=== PATIENT | female | born 1960 | race Caucasian/White ===

== ENCOUNTER 2016-04-05 18:41 | Emergency (ER) | payer SELFPAY ==
[~2016-04-05] VITALS: Ht 157.5 cm; Wt 65.8 kg
[~2016-04-05 18:41] MED LIST: DOCU-143 PO; Flexeril; HYDR-3062 PO; LANS30CA43 PO; NAPR550T PO; PARO30TA74 PO
--- OUTSIDE RECORDS SUMMARY | 2016-04-05 18:45 | XMS REPORT | Continuity of Care Document ---
Author Author [facility] Organization [facility] Address Unknown Phone Unavailable Care Team Providers Care Assembler Arranger Name Role Phone [facility] PCP Insurance Providers Payer Name Policy Number Subscriber Name Relationship Self Pay Regla Jimenez Siva 18 Self / Same As Patient Advance Directives Directive Response Recorded Date/Time Advance Directives No 02/06/16 3:38pm Organ Donor Yes 02/06/16 3:38pm Resuscitation Status Full Code 02/06/16 3:38pm Problems Active Problems Medical Problem Onset Date Status Back pain Unknown Acute Lumbar radiculopathy Unknown Acute Medications Current Home Medications Medication Dose Units Route Directions Days/Qty Instructions Start Date Paroxetine Hcl 30 Mg 30 Mg Oral Daily 12/19/15 Lansoprazole 30 Mg 30 Mg Oral 12/19/15 Past Home Medications Medication Directions Ordered Status Naproxen Sodium (Naproxen) 550 Mg Tablet, 550 Mg Oral Twice A Day 12/19/15 Discontinued [Flexeril] , 10 Mg Twice A Day 12/19/15 Discontinued Social History Social History Problem Response Recorded Date/Time Alcohol Use Denies Use 02/06/2016 3:38pm Recreational Drug Use No 02/06/2016 3:38pm Recent Foreign Travel No 02/06/2016 3:45pm Recent Infectious Disease Exposure No 02/06/2016 3:45pm Smoking Status Current Everyday Smoker 02/06/2016 3:38pm Type Used Cigarettes 02/06/2016 3:38pm Recent Hopitalizations No 02/06/2016 3:38pm Query Response Start Date Stop Date Smoking Status Current Everyday Smoker Hospital Discharge Instructions No hospital discharge instructions. Plan of Care Discharge Date 02/06/16 3:50pm Prescriptions See Medication Section Functional Status No functional status results. Allergies, Adverse Reactions, Alerts No known allergies. Immunizations No immunization records. Vital Signs Acute Vital Signs Vital Response Date/Time Pulse Rate (adult) 90 bpm (60 - 90) 02/06/2016 3:42pm O2 Sat by Pulse Oximetry 97 % (88 - 100) 02/06/2016 3:42pm Blood Pressure 114/74 mm Hg 02/06/2016 3:42pm Blood Pressure Mean 87 mm Hg 02/06/2016 3:42pm Pain Numeric Pain Scale 2 02/06/2016 3:42pm Height (Feet) 5 feet 02/06/2016 3:45pm Height (Inches) 2.00 inches 02/06/2016 3:45pm Height (Calculated Centimeters) 157.011561 cm 02/06/2016 3:45pm Weight (Pounds) 143 pounds 02/06/2016 3:45pm Weight (Ounces) 7.0 oz 02/06/2016 3:45pm Weight (Calculated Grams) 38911.16 gm 02/06/2016 3:45pm Weight (Calculated Kilograms) 65.560657 kilograms 02/06/2016 3:45pm Calculated BMI 26.2 02/06/2016 3:45pm Results No known relevant diagnostic tests, laboratory data and/or discharge summary. Procedures No known history of procedures. Encounters Encounter Location Arrival/Admit Date Discharge/Depart Date Attending Provider Registered Clinic [facility] 02/06/16 3:30pm RADHA MARIE DO
--- NOTE | 2016-04-05 20:59 | ED Back Pain ---
General Chief Complaint: Back Problems Stated Complaint: BACK PAIN Nursing Triage Note: pt c/o low back pain radiating down bilat legs intermittently. she was seen 3 months ago et had xrays, denies relief. 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 unrelieved by ibuprofen. requesting pain control et referral to pcp. Nursing Sepsis Screen: No Definite Risk Source of Information: Patient Exam Limitations: No Limitations History of Present Illness Time Seen by Provider: 20:59 Initial Comments 56-year-old female patient presents to the emergency department complains of low back pain radiating down the bilateral buttocks and thighs. Patient reports she has had back pain for at least 3 months and had x-rays in December which were negative for acute findings. Patient was seen by Karina Jacobo twice without improvement in symptoms. Patient denies numbness, tingling, weakness, bowel incontinence, or bladder incontinence. Denies any known injury. Patient reports just starting a new job at [employer]. Location: Lumbar Spine, Paraspinous Muscles Timing/Duration: Getting Worse, Other (chronic pain for approximately 3 months) Pain/Injury Location: Back Radiation: Buttocks, Upper Legs Method of Injury: Unknown Modifying Factors: Worse With Movement Associated Symptoms: muscle spasmsNo fever, No weakness, No numbness in legs/ feet, No tingling in legs/feet, No sensory/motor loss, lower back painNo loss of bladder control, No loss of bowel control Allergies and Home Medications Allergies Coded Allergies: No Known Drug Allergies (Unverified , 02/06/16) Home Medications Cyclobenzaprine HCl 10 Mg Tablet #14 10 MG PO Q8H PRN PRN SPASMS Prescribed by: LESA JONES on 04/05/162155 Docusate Sodium 100 Mg Capsule #60 100 MG PO BID Prescribed by: ADINA HORNE on 02/13/16 1024 Hydrocodone/Acetaminophen 1 Each Tablet 0Days 1 EACH PO [id number] PRN PRN PAIN Prescribed by: ADINA HORNE on 02/13/16 1024 Lansoprazole 30 Mg Capsule.dr 30 MG PO (Reported) Paroxetine HCl 30 Mg Tablet 30 MG PO DAILY (Reported) Prednisone 20 Mg Tab #10 40 MG PO DAILY Prescribed by: LESA JONES on 04/05/162155 Tramadol HCl 50 Mg Tablet #10 50 MG PO Q4H PRN PRN PAIN Prescribed by: LESA JONES on 04/05/162155 Constitutional: no symptoms reported Respiratory: no symptoms reported Cardiovascular: no symptoms reported Gastrointestinal: No abdominal pain, No constipation, No diarrhea, No nausea, No vomiting Genitourinary: no symptoms reported Musculoskeletal: back pain joint pain muscle painNo neck pain Skin: no symptoms reported Psychiatric/Neurological: Denies Numbness, Denies Paresthesia, Denies Tingling , Denies Weakness All Other Systems Reviewed Negative Unless Noted: Yes (Negative excepted noted.) Past Vdkcmyr-Inumeg-Tqqoxm Hx Patient Social History Alcohol Use: Denies Use Recreational Drug Use: No Smoking Status: Current Everyday Smoker Type Used: Cigarettes Recent Foreign Travel: No Contact w/Someone Who Travel: No Recent Infectious Disease Expo: No Recent Hopitalizations: No Seasonal Allergies Seasonal Allergies: No Surgeries HX Surgeries: Yes (PILONDIAL CYST?, BILAT CTR, ) Surgeries: Tubal Ligation Respiratory Hx Respiratory Disorders: No Cardiovascular Hx Cardiac Disorders: No Neurological Hx Neurological Disorders: No Reproductive System Female Reproductive Disorders: Denies Genitourinary Hx Genitourinary Disorders: No Gastrointestinal Hx Gastrointestinal Disorders: No Musculoskeletal Hx Musculoskeletal Disorders: Yes (SCIATIC PAIN) Musculoskeletal Disorders: Arthritis, Chronic Back Pain Endocrine Hx Endocrine Disorders: No HEENT HX ENT Disorders: No Cancer Hx Cancer: No Psychosocial Hx Psychiatric Problems: No Integumentary HX Skin/Integumentary Disorder: No (LIPOMA R UPPER BACK) Blood Transfusions Hx Blood Disorders: No Reviewed Nursing Assessment Reviewed/Agree w Nursing PMH: Yes Family Medical History Significant Family History: No Pertinent Family Hx Physical Exam Vital Signs Vital Sign - Last 12Hours 04/05/16 04/05/16 19:25 22:04 Temp 98.2 Pulse 76 Resp 16 B/P 102/72 Pulse Ox 100 O2 Delivery Room Air Capillary Refill : Less Than 3 Seconds General Appearance: No Apparent Distress WD/WN Cardiovascular: Regular Rate, Rhythm No Edema No Murmur Normal Peripheral Pulses Respiratory: Lungs Clear Normal Breath Sounds No Respiratory Distress Peripheral Pulses: 2+ Radial Pulses (R), 2+ Radial Pulses (L) Gastrointestinal: Normal Bowel Sounds Non Tender SoftNo Distended Back: No Decreased Range of Motion (patient moves without difficulty.), Muscle Spasm Vertebral Tenderness (lower lumbar spine) Extremity: Normal Capillary Refill Normal Inspection Normal Range of Motion No Calf Tenderness No Pedal Edema Other (mild tenderness over the bilateral buttocks and proximal posterior thighs.) Neurologic/Psychiatric: Alert Oriented x3 No Motor/Sensory Deficits Normal Mood/Affect Skin: Normal Color Warm/Dry Progress/Results/Core Measures Results/Orders My Orders Orders-LESA JONES Lumbar Spine - 2-3 Views (04/05/16 21:14) Hydrocodone/Apap 5/325 Tablet (Lortab 5 (04/05/16 21:14) Orphenadrine Injection (Norflex Injectio (04/05/16 21:14) Vital Signs/I&O Vital Sign - Last 12Hours 04/05/16 04/05/16 19:25 22:04 Temp 98.2 Pulse 76 68 Resp 16 14 B/P 102/72 Pulse Ox 100 O2 Delivery Room Air Blood Pressure Mean: 82 Diagnostic Imaging Diagonstic Imaging: Xray Plain Films/CT/US/NM/MRI: other (lumbar spine) Comments FINDINGS: Frontal and lateral views of the lumbar spine were obtained. Alignment and vertebral heights are maintained. There is no fracture or destructive process. Mild multilevel degenerative disease is noted in the lumbar spine. Limited views of the abdomen demonstrate nonobstructive bowel gas pattern. IMPRESSION: 1. No acute fracture or dislocation of the lumbar spine. Dictated on workstation # [id number] Reviewed: Reviewed by Me (radiology report reviewed by me.) Departure Communication Progress Notes Diagnostic findings discussed with the patient. Patient reports improvement in symptoms with medications. Plan for discharge to home. Patient ambulated from the emergency department without difficulty. Impression Impression: Primary Impression: Lumbar radiculopathy Disposition: 01 HOME, SELF-CARE Condition: Improved Departure-Patient Inst. Decision time for Depature: 21:52 Referrals: [facility] (PCP/Family) Primary Care Physician Patient Instructions: Radiculopathy (DC) Add. Discharge Instructions: All discharge instructions reviewed with patient and/or family. Voiced understanding. medications as instructed. Tylenol Extra Strength over-the- counter as directed for pain. Ibuprofen 800 mg by mouth every 8 hours as needed for pain. Ice packs or heating pads as needed for pain. No heavy lifting for 3-5 days, increase activity as tolerated. Follow-up with the family practitioner of choice as an outpatient for recheck and possible need of MRI of the lumbar spine. Call tomorrow morning for appointment time. Return to the emergency department for worsened pain, numbness, weakness, bowel incontinence, bladder incontinence, abdominal pain, or any other concerns. Scripts Tramadol HCl 50 Mg [id number] Mg PO Q4H PRN PAIN #10 TAB Ref 0 Prov:LESA JONES 04/05/16 Cyclobenzaprine HCl 10 Mg Auzrqm12 Mg PO Q8H PRN SPASMS #14 TAB Ref 0 Prov:LESA JONES 04/05/16 Prednisone 20 Mg Tab40 Mg PO DAILY #10 TAB Ref 0 Prov:LESA JONES 04/05/16 LESA JONES Apr 05, 2016 20:59
[2016-04-05] MEDS ORDERED: ORPHENADRINE 60 MG/2 ML (NORFLEX) AMP IM STA (21:14)
[2016-04-05] MEDS ORDERED: HYDROcodone/APAP 5 MG/325 MG (LORTAB) TAB PO STA (21:14)
--- NOTE | 2016-04-05 21:33 | Diagnostic Imaging Report ---
INDICATION: Fall. Back pain. COMPARISON: 12/19/2015 FINDINGS: Frontal and lateral views of the lumbar spine were obtained. Alignment and vertebral heights are maintained. There is no fracture or destructive process. Mild multilevel degenerative disease is noted in the lumbar spine. Limited views of the abdomen demonstrate nonobstructive bowel gas pattern. IMPRESSION: 1. No acute fracture or dislocation of the lumbar spine. Dictated by: Dictated on workstation # [id number]
[2016-04-05] MEDS ORDERED: CYCL10TA9 PO (21:56)
[2016-04-05] MEDS ORDERED: TRAM50TA2 PO (21:56)
[2016-04-05] MEDS ORDERED: PRD20T PO (21:56)
[2016-04-05 22:04] VITALS: BP 110/68
== END 2016-04-05 22:04 | disposition home or self-care (01) ==
LOC: EDUNIT# 18:41 → ER 18:42
DX: M54.16 Radiculopathy, lumbar region (principal); F17.210 Nicotine dependence, cigarettes, uncomplicated
CPT/HCPCS: 72100; 96372; 99281

== ENCOUNTER 2016-04-25 21:31 | Emergency (ER) | payer SELFPAY ==
[~2016-04-25] VITALS: Ht 157.5 cm; Wt 66.0 kg
[~2016-04-25 21:31] MED LIST changes: +CYCL10TA9 PO; +PRD20T PO; +TRAM50TA2 PO
--- OUTSIDE RECORDS SUMMARY | 2016-04-25 21:36 | XMS REPORT | Continuity of Care Document ---
Author Author [facility] Organization [facility] Address Unknown Phone Unavailable Care Team Providers Care Journeyman Millwright Name Role Phone [facility] PCP Insurance Providers Payer Name Policy Number Subscriber Name Relationship Unknown [id number] Regla Flores Siva 18 Self / Same As Patient Advance Directives Directive Response Recorded Date/Time Advance Directives No 04/05/16 8:27pm Organ Donor Yes 04/05/16 8:27pm Resuscitation Status Full Code 04/05/16 8:27pm Chief Complaint and Reason for Visit Chief Complaint Back Problems Reason for Visit Lumbar radiculopathy Problems Active Problems Medical Problem Onset Date Status Back pain Unknown Acute Lumbar radiculopathy Unknown Acute Medications Current Home Medications Medication Dose Units Route Directions Days/Qty Instructions Start Date Paroxetine Hcl 30 Mg 30 Mg Oral Daily 12/19/15 Lansoprazole 30 Mg 30 Mg Oral 12/19/15 Docusate Sodium 100 Mg 100 Mg Oral Twice A Day 60 02/13/16 Hydrocodone/Acetaminophen 1 Each 1 Each Oral [id number] as needed for Pain 0 Days 02/13/16 Prednisone 20 Mg 40 Mg Oral Daily 10 04/05/16 Cyclobenzaprine Hcl 10 Mg 10 Mg Oral Every 8HRS as needed for Spasms 14 04/05/16 Tramadol Hcl 50 Mg 50 Mg Oral Every 4HRS as needed for Pain 10 Past Home Medications Medication Directions Ordered Status Naproxen Sodium (Naproxen) 550 Mg Tablet, 550 Mg Oral Twice A Day 12/19/15 Discontinued [Flexeril] , 10 Mg Twice A Day 12/19/15 Discontinued Social History Social History Problem Response Recorded Date/Time Alcohol Use Denies Use 04/05/2016 8:27pm Recreational Drug Use No 04/05/2016 8:27pm Recent Foreign Travel No 04/05/2016 7:25pm Recent Infectious Disease Exposure No 04/05/2016 7:25pm Smoking Status Current Everyday Smoker 04/05/2016 8:27pm Type Used Cigarettes 04/05/2016 8:27pm Recent Hopitalizations No 04/05/2016 8:27pm Query Response Start Date Stop Date Smoking Status Current Everyday Smoker Hospital Discharge Instructions No hospital discharge instructions. Plan of Care Discharge Date 04/05/16 10:04pm Disposition 01 HOME, SELF-CARE Condition at Discharge Improved Instructions/Education Provided Radiculopathy (DC) Forms Provided Local Medical Staff Listing Prescriptions See Medication Section Referrals [facility] - Primary Care Physician Additional Instructions/Education All discharge instructions reviewed with patient and/or family. Voiced understanding. medications as instructed. Tylenol Extra Strength [id number] as directed for pain. Ibuprofen 800 mg by mouth every 8 hours as needed for pain. Ice packs or heating pads as needed for pain. No heavy lifting for 3-5 days, increase activity as tolerated. Follow-up with the family practitioner of choice as an outpatient for recheck and possible need of MRI of the lumbar spine. Call tomorrow morning for appointment time. Return to the emergency department for worsened pain, numbness, weakness, bowel incontinence, bladder incontinence, abdominal pain, or any other concerns. Functional Status No functional status results. Allergies, Adverse Reactions, Alerts No known allergies. Immunizations No immunization records. Vital Signs Acute Vital Signs Vital Response Date/Time Temperature (Fahrenheit) 98.2 degrees F (97.6 - 99.5) 04/05/2016 7:25pm Temperature (Calculated Celsius) 36.66482 degrees C (36.4 - 37.5) 04/05/2016 7:25pm Temperature Source Temporal 04/05/2016 7:25pm Pulse Rate (adult) 76 bpm (60 - 90) 04/05/2016 7:25pm Respiratory Rate 16 bpm (12 - 24) 04/05/2016 7:25pm Blood Pressure 102/72 mm Hg 04/05/2016 7:25pm Blood Pressure Mean 82 mm Hg 04/05/2016 7:25pm Pain Numeric Pain Scale 5-Moderate Pain 04/05/2016 9:25pm Height (Feet) 5 feet 04/05/2016 7:25pm Height (Inches) 2 inches 04/05/2016 7:25pm Height (Calculated Centimeters) 157.529209 cm 04/05/2016 7:25pm Weight (Pounds) 145 pounds 04/05/2016 7:25pm Weight (Calculated Kilograms) 65.932847 kilograms 04/05/2016 7:25pm Capillary Refill Capillary Refill Less Than 3 Seconds 04/05/2016 7:25pm Height 5 ft 2 in Weight 145 lb Body Mass Index 26.5 kg/m^2 Results No known relevant diagnostic tests, laboratory data and/or discharge summary. Procedures No known history of procedures. Encounters Encounter Location Arrival/Admit Date Discharge/Depart Date Attending Provider Departed Emergency Room [facility] 04/05/16 6:42pm 04/05 10:04pm LESA JONES Recent Diagnosis
--- NOTE | 2016-04-25 21:43 | ED Back Pain ---
General Chief Complaint: Back Problems Stated Complaint: BACK PAIN Source of Information: Patient Exam Limitations: No Limitations History of Present Illness Time Seen by Provider: 21:41 Initial Comments To ER with low back pain for the past 24-48 hours. No fevers or chills. No injury. No radiation of the pain down the legs. No loss of bowel or bladder control and no saddle anesthesia. She states that she was diagnosed here with degenerative disc disease and is scheduled to see a spine surgeon in the next week. She was seen here in March and given prednisone, muscle relaxer, ultram. Location: Lumbar Spine Timing/Duration: 2-3 Days Severity: Moderate Allergies and Home Medications Allergies Coded Allergies: No Known Drug Allergies (Unverified , 02/06/16) Home Medications Cyclobenzaprine HCl 5 Mg Tablet #21 5 MG PO TID PRN PRN PAIN Prescribed by: ALEXIS BERNSTEIN on 04/25/162153 Lansoprazole 30 Mg Capsule.dr 30 MG PO (Reported) Naproxen 500 Mg Tablet.dr #14 500 MG PO BID Prescribed by: ALEXIS BERNSTEIN on 04/25/162153 Paroxetine HCl 30 Mg Tablet 30 MG PO DAILY (Reported) Constitutional: see HPI EENTM: see HPI Respiratory: no symptoms reported Cardiovascular: no symptoms reported Genitourinary: no symptoms reported Musculoskeletal: see HPI back pain Skin: no symptoms reported Psychiatric/Neurological: No Symptoms Reported Past Cehnlls-Pwylqj-Iddnmz Hx Patient Social History Alcohol Use: Denies Use Recreational Drug Use: No Smoking Status: Current Everyday Smoker Type Used: Cigarettes, Electronic/Vapor 2nd Hand Smoke Exposure: Yes Recent Foreign Travel: No Contact w/Someone Who Travel: No Recent Hopitalizations: No Immunizations Up To Date Tetanus Booster (TDap): Less than 5yrs PED Vaccines UTD: Yes Seasonal Allergies Seasonal Allergies: No Surgeries HX Surgeries: Yes (PILONDIAL CYST?, BILAT CTR, lipoma) Surgeries: Tubal Ligation Respiratory Hx Respiratory Disorders: No Cardiovascular Hx Cardiac Disorders: No Neurological Hx Neurological Disorders: No Reproductive System Female Reproductive Disorders: Denies Genitourinary Hx Genitourinary Disorders: No Gastrointestinal Hx Gastrointestinal Disorders: No Musculoskeletal Hx Musculoskeletal Disorders: Yes (SCIATIC PAIN) Musculoskeletal Disorders: Degenerate Disk Disease, Arthritis, Chronic Back Pain Endocrine Hx Endocrine Disorders: No HEENT HX ENT Disorders: No Cancer Hx Cancer: No Psychosocial Hx Psychiatric Problems: No Integumentary HX Skin/Integumentary Disorder: No (LIPOMA R UPPER BACK) Blood Transfusions Hx Blood Disorders: No Family Medical History Significant Family History: No Pertinent Family Hx Physical Exam Vital Signs Vital Sign - Last 12Hours 04/25/16 21:39 Temp 98.7 Pulse 80 Resp 18 B/P 161/74 Pulse Ox 96 O2 Delivery Room Air Capillary Refill : General Appearance: No Apparent Distress WD/WN HEENT: PERRL/EOMI TMs Normal Cardiovascular: Regular Rate, Rhythm Normal Peripheral Pulses Respiratory: Normal Breath Sounds No Accessory Muscle Use No Respiratory Distress Gastrointestinal: Non Tender Soft Back: Normal Inspection Extremity: Normal Capillary Refill Normal Inspection Neurologic/Psychiatric: Alert Oriented x3 Skin: Normal Color Warm/Dry Progress/Results/Core Measures Results/Orders Lab Results Laboratory Tests Test 04/25/16 21:44 Range/Units Ur Tricyclic Antidepressants Screen NEGATIVE NEGATIVE Urine Amphetamines Screen POSITIVE H NEGATIVE Urine Barbiturates Screen NEGATIVE NEGATIVE Urine Benzodiazepines Screen NEGATIVE NEGATIVE Urine Cannabinoids Screen NEGATIVE NEGATIVE Urine Cocaine Screen NEGATIVE NEGATIVE Urine Methadone Screen NEGATIVE NEGATIVE Urine Methamphetamines Screen POSITIVE H NEGATIVE Urine Opiates Screen NEGATIVE NEGATIVE Urine Oxycodone Screen NEGATIVE NEGATIVE Urine Phencyclidine Screen NEGATIVE NEGATIVE Urine Propoxyphene Screen NEGATIVE NEGATIVE My Orders Orders-ALEXIS BERNSTEIN APRN Drug Screen Stat (Urine) (04/25/16 21:38) Ketorolac Injection (Toradol Injection) (04/25/16 21:45) Orphenadrine Injection (Norflex Injectio (04/25/16 21:45) Medications Given in ED Current Medications Medications Dose Ordered Sig/Nata Route Start Time Stop Time Status Last Admin Dose Admin Ketorolac Tromethamine 60 mg ONCE ONCE IM 04/25/16 21:45 04/25/16 21:46 DC 04/25/16 21:50 60 MG Orphenadrine Citrate 60 mg ONCE ONCE IM 04/25/16 21:45 04/25/16 21:46 DC 04/25/16 21:48 60 MG Vital Signs/I&O Vital Sign - Last 12Hours 04/25/16 04/25/16 04/25/16 21:39 21:48 21:50 Temp 98.7 98.7 98.7 Pulse 80 Resp 18 B/P 161/74 Pulse Ox 96 O2 Delivery Room Air Departure Impression Impression: Primary Impression: Back pain Qualified Code: M54.5 - Low back pain Additional Impression: Methamphetamine abuse Disposition: 01 HOME, SELF-CARE Condition: Stable Departure-Patient Inst. Decision time for Depature: 21:43 Referrals: [facility] (PCP/Family) Primary Care Physician Patient Instructions: Low Back Pain (DC) Add. Discharge Instructions: 1. Medication as directed 2. Return to ER for any concerns 3. Follow-up with your doctor next week All discharge instructions reviewed with patient and/or family. Voiced understanding. Scripts Naproxen (EC-Naprosyn)500 Mg Tablet.dr500 Mg PO BID #14 TAB Prov:ALEXIS BERNSTEIN [employer]ING [employer]OX [employer] 04/25/16 Cyclobenzaprine HCl 5 Mg Tablet5 Mg PO TID PRN PAIN #21 TAB Prov:ALEXIS BERNSTEIN APRN 04/25/16 ALEXIS BERNSTEIN APRN Apr 25, 2016 21:43
[2016-04-25] MEDS ORDERED: KETOROLAC 60 MG/2 ML VIAL IM ONE (21:45)
[2016-04-25] MEDS ORDERED: ORPHENADRINE 60 MG/2 ML (NORFLEX) AMP IM ONE (21:45)
[2016-04-25 21:53] LABS: BILIRUBIN,URINE NEGATIVE (NEGATIVE); KETONES,URINE NEGATIVE (NEGATIVE); LEUKOCYTE ESTERASE ,URINE NEGATIVE (NEGATIVE); NITRITE,URINE NEGATIVE (NEGATIVE); PH,URINE 5 (5-9); PROTEIN,URINE NEGATIVE (NEGATIVE); UROBILINOGEN,URINE NORMAL (NORMAL)
[2016-04-25] MEDS ORDERED: CYCL5TAB PO (21:54)
[2016-04-25] MEDS ORDERED: NAPR500T2 PO (21:54)
[2016-04-25 22:20] VITALS: BP 161/74
== END 2016-04-25 22:20 | disposition home or self-care (01) ==
LOC: EDUNIT# 21:31 → ER 21:32
DX: M54.5 Low back pain (principal); F15.10 Other stimulant abuse, uncomplicated; F17.210 Nicotine dependence, cigarettes, uncomplicated
CPT/HCPCS: 80306; 81000; 96372; 99282

== ENCOUNTER 2016-05-10 12:42 | Emergency (ER) | payer SELFPAY ==
[~2016-05-10] VITALS: Ht 157.5 cm; Wt 64.9 kg
[~2016-05-10 12:42] MED LIST changes: +CYCL5TAB PO; +NAPR500T2 PO
[2016-05-10] MEDS ORDERED: fentaNYL INJECTION 100 MCG/2 ML AMP IVP ONE (13:00)
[2016-05-10] MEDS ORDERED: PREVACID (13:06)
[2016-05-10] MEDS ORDERED: MOBIC (13:06)
--- NOTE | 2016-05-10 13:06 | ED Back Pain ---
General Chief Complaint: Back Problems Stated Complaint: BACK PAIN Source of Information: Patient Exam Limitations: No Limitations History of Present Illness Time Seen by Provider: 13:03 Initial Comments To ER with low back pain that radiates down both legs but on the right side worse than the left. This began about 4 months ago. She was seen here a few weeks ago and given a prescription for anti-inflammatories and prednisone which she states did help significantly. However, she is out of prednisone pain in his back. She denies any loss of bowel or bladder control. Denies any fevers. Location: Lumbar Spine, Paraspinous Muscles Timing/Duration: 1-2 Days Severity: Moderate Pain/Injury Location: Back Associated Symptoms: No fever, lower back pain Allergies and Home Medications Allergies Coded Allergies: No Known Drug Allergies (Unverified , 02/06/16) Home Medications Paroxetine HCl 30 Mg Tablet, 30 MG PO DAILY, (Reported) [Mobic] , (Reported) [Prevacid] , (Reported) Constitutional: see HPI EENTM: see HPI Respiratory: no symptoms reported Cardiovascular: no symptoms reported Genitourinary: no symptoms reported Musculoskeletal: see HPI, back pain Skin: no symptoms reported Psychiatric/Neurological: No Symptoms Reported Past Dtkxmvo-Umhbhy-Ijqkfs Hx Patient Social History Type Used: Cigarettes, Electronic/Vapor 2nd Hand Smoke Exposure: Yes Recent Foreign Travel: No Contact w/Someone Who Travel: No Recent Hopitalizations: No Immunizations Up To Date Tetanus Booster (TDap): Less than 5yrs PED Vaccines UTD: Yes Seasonal Allergies Seasonal Allergies: No Surgeries HX Surgeries: Yes (PILONDIAL CYST?, BILAT CTR, lipoma) Surgeries: Tubal Ligation Respiratory Hx Respiratory Disorders: No Cardiovascular Hx Cardiac Disorders: No Neurological Hx Neurological Disorders: No Reproductive System Female Reproductive Disorders: Denies Genitourinary Hx Genitourinary Disorders: No Gastrointestinal Hx Gastrointestinal Disorders: No Musculoskeletal Hx Musculoskeletal Disorders: Yes (SCIATIC PAIN) Musculoskeletal Disorders: Degenerate Disk Disease, Arthritis, Chronic Back Pain Endocrine Hx Endocrine Disorders: No HEENT HX ENT Disorders: No Cancer Hx Cancer: No Psychosocial Hx Psychiatric Problems: No Integumentary HX Skin/Integumentary Disorder: No (LIPOMA R UPPER BACK) Blood Transfusions Hx Blood Disorders: No Family Medical History Significant Family History: No Pertinent Family Hx Physical Exam Vital Signs Vital Sign - Last 12Hours 05/10/16 12:50 Temp 98.0 Pulse 93 Resp 18 B/P (MAP) 159/95 Pulse Ox 97 Capillary Refill : General Appearance: No Apparent Distress, WD/WN, Other (moves nearly constantly , speaks in a high rate of speed and appears to be either manic or under the influence of a stimulant) HEENT: PERRL/EOMI, TMs Normal Neck: Full Range of Motion, Normal Inspection Respiratory: No Accessory Muscle Use, No Respiratory Distress Gastrointestinal: Non Tender, Soft Back: Normal Inspection, Muscle Spasm Extremity: Normal Capillary Refill, Normal Inspection Neurologic/Psychiatric: Alert, Oriented x3, No Motor/Sensory Deficits Skin: Normal Color, Warm/Dry Progress/Results/Core Measures Results/Orders Lab Results Laboratory Tests Test 05/10/16 13:10 Range/Units Urine Color YELLOW Urine Clarity CLEAR Urine pH 6 5-9 Urine Specific [place] 1.010 L 1.016-1.022 Urine Protein NEGATIVE NEGATIVE Urine Glucose (UA) NEGATIVE NEGATIVE Urine Ketones NEGATIVE NEGATIVE Urine Nitrite NEGATIVE NEGATIVE Urine Bilirubin NEGATIVE NEGATIVE Urine Urobilinogen NORMAL NORMAL MG/DL Urine Leukocyte Esterase NEGATIVE NEGATIVE Urine RBC (Auto) NEGATIVE NEGATIVE Urine RBC NONE /HPF Urine WBC NONE /HPF Urine Squamous Epithelial Cells 5-10 /HPF Urine Crystals NONE /LPF Urine Bacteria NEGATIVE /HPF Urine Casts NONE /LPF Urine Mucus NEGATIVE /LPF Urine Culture Indicated NO Urine Opiates Screen NEGATIVE NEGATIVE Urine Oxycodone Screen NEGATIVE NEGATIVE Urine Methadone Screen NEGATIVE NEGATIVE Urine Propoxyphene Screen NEGATIVE NEGATIVE Urine Barbiturates Screen NEGATIVE NEGATIVE Ur Tricyclic Antidepressants Screen NEGATIVE NEGATIVE Urine Phencyclidine Screen NEGATIVE NEGATIVE Urine Amphetamines Screen POSITIVE H NEGATIVE Urine Methamphetamines Screen POSITIVE H NEGATIVE Urine Benzodiazepines Screen NEGATIVE NEGATIVE Urine Cocaine Screen NEGATIVE NEGATIVE Urine Cannabinoids Screen NEGATIVE NEGATIVE My Orders Orders - ALEXIS BERNSTEIN APRN Fentanyl Injection (Sublimaze Injection (05/10/16 13:00) Ct Lumbar Spine Wo (05/10/16 13:03) Drug Screen Stat (Urine) (05/10/16 13:03) Ua Culture If Indicated (05/10/16 13:03) Ketorolac Injection (Toradol Injection) (05/10/16 13:30) Diphenhydramine Injection (Benadryl Inje (05/10/16 13:30) Medications Given in ED Current Medications Medications Dose Ordered Sig/Nata Route Start Time Stop Time Status Last Admin Dose Admin Diphenhydramine HCl 25 mg ONCE ONCE IM 05/10/16 13:30 05/10/16 13:31 DC 05/10/16 13:31 25 MG Ketorolac Tromethamine 60 mg ONCE ONCE IM 05/10/16 13:30 05/10/16 13:31 DC 05/10/16 13:31 60 MG Vital Signs/I&O Vital Sign - Last 12Hours 05/10/16 12:50 Temp 98.0 Pulse 93 Resp 18 B/P (MAP) 159/95 Pulse Ox 97 Diagnostic Imaging Diagonstic Imaging: CT Comments NAME: REGLA JIMENEZ [facility] REC#: [id number] PT STATUS: REG ER : 1960 PHYSICIAN: ALEXIS BERNSTEIN APRN ADMIT DATE: 05/10/16/ER Draft Date of Exam:05/10/16 CT LUMBAR SPINE WO PROCEDURE: CT lumbar spine without contrast. TECHNIQUE: Multiple contiguous axial images were obtained through the lumbar spine without the use of intravenous contrast. Sagittal and coronal reformations were then performed. INDICATION: Chronic back pain radiating into right leg. FINDINGS: Sagittal and coronal reformatted images show good alignment of the vertebral bodies. Body heights and disc spaces are well maintained. No compression fractures. Mild hypertrophic lipping of the endplates noted anteriorly. Facets show good alignment without evidence of pars defect. There is no evidence of central canal stenosis. Degenerative facet disease noted at L5-S1 with hypertrophic bony changes causing mild foraminal encroachment in the right neuroforamen. The surrounding soft tissues appear normal. IMPRESSION: 1. Mild degenerative disc disease. 2. Degenerative facet changes at L5-S1 with hypertrophic bony changes causing [id number] foraminal encroachment in the right neuroforamen. Dictated on workstation # [id number] Dict: 05/10/16 1352 Trans: 05/10/16 1356 [id number] Interpreted by: ROBERT MASTERS MD Electronically signed by: Departure Impression Impression: Primary Impression: Lumbar radiculopathy Additional Impression: Methamphetamine abuse Disposition: 01 HOME, SELF-CARE Condition: Stable Departure-Patient Inst. Decision time for Depature: 13:32 Referrals: [facility] (PCP/Family) Primary Care Physician Patient Instructions: MANAGING YOUR CHRONIC PAIN Add. Discharge Instructions: 1. You should stop using methamphetamines. If you desire treatment for this, you may call the addiction treatment Center in [place], 2. Follow-up with your regular doctor. Tylenol and Motrin for pain 3. Return to ER for any loss of bowel or bladder control, high fevers, or numbness of your genitals All discharge instructions reviewed with patient and/or family. Voiced understanding. Scripts Cyclobenzaprine HCl (Cyclobenzaprine HCl) 5 Mg Tablet 5 MG PO TID for 7 Days, TAB Prov: ALEXIS BERNSTEIN APRN 05/10/16 ALEXIS BERNSTEIN APRN May 10, 2016 13:06
[2016-05-10 13:17] LABS: BILIRUBIN,URINE NEGATIVE (NEGATIVE); KETONES,URINE NEGATIVE (NEGATIVE); LEUKOCYTE ESTERASE ,URINE NEGATIVE (NEGATIVE); NITRITE,URINE NEGATIVE (NEGATIVE); PH,URINE 6 (5-9); PROTEIN,URINE NEGATIVE (NEGATIVE); UROBILINOGEN,URINE NORMAL (NORMAL)
[2016-05-10] MEDS ORDERED: KETOROLAC 60 MG/2 ML VIAL IM ONE (13:30)
[2016-05-10] MEDS ORDERED: diphenhydrAMINE 50 MG/ML INJ (BENADRYL) IM ONE (13:30)
--- NOTE | 2016-05-10 13:57 | Diagnostic Imaging Report ---
PROCEDURE: CT lumbar spine without contrast. TECHNIQUE: Multiple contiguous axial images were obtained through the lumbar spine without the use of intravenous contrast. Sagittal and coronal reformations were then performed. INDICATION: Chronic back pain radiating into right leg. FINDINGS: Sagittal and coronal reformatted images show good alignment of the vertebral bodies. Body heights and disc spaces are well maintained. No compression fractures. Mild hypertrophic lipping of the endplates noted anteriorly. Facets show good alignment without evidence of pars defect. There is no evidence of central canal stenosis. Degenerative facet disease noted at L5-S1 with hypertrophic bony changes causing mild foraminal encroachment in the right neuroforamen. The surrounding soft tissues appear normal. IMPRESSION: 1. Mild degenerative disc disease. 2. Degenerative facet changes at L5-S1 with hypertrophic bony changes causing [id number] foraminal encroachment in the right neuroforamen. Dictated by: Dictated on workstation # [id number]
[2016-05-10] MEDS ORDERED: CYCL5TAB PO (14:00)
[2016-05-10 14:04] VITALS: BP 144/91
--- OUTSIDE RECORDS SUMMARY | 2016-05-26 13:25 | XMS REPORT ---
Author Author BEREKET AMEZCUA [facility] eClinical[employer] Address Unknown Phone Unavailable Care Team Providers Care Moth Proofer Name Role Phone BEREKET AMEZCUA CP Unavailable Allergies No Known Allergies Problems Problem Type Condition Code Onset Dates Condition Status Problem PTSD (post-traumatic stress disorder) F43.10 Active Problem Anxiety F41.9 Active Problem Severe episode of recurrent major depressive disorder, without psychotic features F33.2 Active Assessment Anxiety F41.9 Active Assessment Severe episode of recurrent major depressive disorder, without psychotic features F33.2 Active Assessment PTSD (post-traumatic stress disorder) F43.10 Active Medications No Known Medications Procedures Procedure Coding System Code Date Psychotherapy, patient &/family, 30 minutes, established patient CPT-4 17840 Dec 23, 2015 Results No Known Results Summary Purpose eClinicalWorks Submission
--- OUTSIDE RECORDS SUMMARY | 2016-05-26 13:26 | XMS REPORT ---
Author Author BEREKET AMEZCUA [facility] e[employer] Address Unknown Phone Unavailable Care Team Providers Care Organizational Psychologist Name Role Phone BEREKET AMEZCUA Unavailable Allergies No Known Allergies Problems Problem Type Condition Code Onset Dates Condition Status Assessment Bipolar disorder, current episode manic without psychotic features , severe F31.13 Active Medications No Known Medications Procedures Procedure Coding System Code Date Psych diagnostic evaluation, new patient CPT-4 81944 Sep 16, 2015 Results No Known Results Summary Purpose eClinicalWorks Submission
--- OUTSIDE RECORDS SUMMARY | 2016-05-26 13:26 | XMS REPORT ---
Author Author DANIEL OBANDO [facility] Address [address] [place] [address] Care Team Providers Care Esthetician/Owner Name Role Phone DANIEL OBANDO Unavailable PROBLEMS Type Condition ICD9-CM Code QNB50-CM Code Onset Dates Condition Status SNOMED Code Problem Severe episode of recurrent major depressive disorder, without psychotic features F33.2 Active 36983297 Problem PTSD (post-traumatic stress disorder) F43.10 Active 91568178 Problem Anxiety F41.9 Active 58105674 Assessment Lipoma of right upper extremity D17.21 Dec, Active 497544425 ALLERGIES Substance Reaction Event Type Date Status N.K.D.A. Unknown Non Drug Allergy Dec, Unknown SOCIAL HISTORY No smoking Hx information available PLAN OF CARE VITAL SIGNS Height 62 in 2016-01-08 Weight 136 lbs 2016-01-08 Heart Rate 92 bpm 2016-01-08 Respiratory Rate 20 2016-01-08 BMI 24.87 kg/m2 2016-01-08 Blood pressure systolic 90 mmHg 2016-01-08 Blood pressure diastolic 60 mmHg 2016-01-08 MEDICATIONS Medication Instructions Dosage Frequency Start Date End Date Duration Status Prevacid 15 MG Orally Once a day 1 capsule 24h Active Paxil 40 mg Orally Once a day 1 tablet in the morning 24h Active RESULTS No Results PROCEDURES Procedure Date Ordered Related Diagnosis Body Site Office Visit, Est Pt., Level 3 Jan 08, 2016 IMMUNIZATIONS No Known Immunizations
--- OUTSIDE RECORDS SUMMARY | 2016-05-26 13:26 | XMS REPORT ---
Author Author FRANK ADAN Organization [employer] Address Unknown Phone Unavailable Care Team Providers Care Claims Auditor Name Role Phone FRANK ADAN CP Unavailable Allergies No Known Allergies Problems No Known Problems Medications No Known Medications Results No Known Results Summary Purpose eClinicalWorks Submission
--- OUTSIDE RECORDS SUMMARY | 2016-05-26 13:26 | XMS REPORT ---
Author Author BEREKET AMEZCUA [facility] e[employer] Address Unknown Phone Unavailable Care Team Providers Care Pump House Operator Name Role Phone BEREKET AMEZCUA CP Unavailable [...] patient &/family, 30 minutes, established patient CPT-4 01527 Jan 08, 2016 Results No Known Results Summary Purpose eClinicalWorks Submission
== END 2016-05-10 14:04 | disposition home or self-care (01) ==
LOC: EDUNIT# 12:42 → ER 12:43
DX: M47.26 Other spondylosis with radiculopathy, lumbar region (principal); F15.10 Other stimulant abuse, uncomplicated
CPT/HCPCS: 72131; 80306; 81000; 96372; 99282

== ENCOUNTER 2016-06-09 11:13 | Outpatient (RCR) | payer SELFPAY ==
[~2016-06-09 11:13] MED LIST changes: +MOBIC; +PREVACID
== END 2016-06-24 15:29 | disposition home or self-care (01) ==
PROVIDERS: ATTEND Nurse Practitioner Community Health
DX: M54.41 Lumbago with sciatica, right side (principal)

== ENCOUNTER 2016-08-20 17:01 | Emergency (ER) | payer SELFPAY ==
[~2016-08-20] VITALS: Ht 157.5 cm; Wt 61.2 kg
[2016-08-20] MEDS ORDERED: PRD20T PO (19:06)
--- NOTE | 2016-08-20 19:06 | ED Back Pain ---
General Chief Complaint: Back Problems Stated Complaint: LT LEG PAIN Source of Information: Patient History of Present Illness Time Seen by Provider: 18:55 Initial Comments patient presents with 2 weeks progressively worsening pain initiates at the base of her left hip and radiates electrical sensation down her left leg. Is not accompanied by incontinence falls weakness or numbness. She has recently completed physical therapy about a month or 2 ago and says it helped a lot. More recently she has been using Tylenol and ibuprofen at appropriate doses as well as a heating pad and does not feel this is working. For the past couple days she's not been only go to work because she is been in so much pain. She states she is not a sudden pain meds but wants a referral to a specialist as well as some steroids. She is not interested in injection steroids. Allergies and Home Medications Allergies Coded Allergies: No Known Drug Allergies (Unverified , 02/06/16) Home Medications Cyclobenzaprine HCl 5 Mg Tablet, 5 MG PO TID for 7 Days Prescribed by: ALEXIS BERNSTEIN on 05/10/16 1400 Paroxetine HCl 30 Mg Tablet, 30 MG PO DAILY, (Reported) Prednisone 20 Mg Tab, 40 MG PO BID for 5 Days, #16 Ref 0 Prescribed by: JAYLYN JOHNSON on 08/20/16 1906 [Mobic] , (Reported) [Prevacid] , (Reported) Constitutional: No chills, No diaphoresis, No fever, No malaise Respiratory: No cough, No short of breath Cardiovascular: No chest pain, No palpitations Gastrointestinal: No diarrhea, No nausea Genitourinary: No dysuria, No incontinence Skin: No pruritus, No rash Past Fsrzzaq-Qfmhba-Yqjtkw Hx Patient Social History Alcohol Use: Denies Use Recreational Drug Use: No Smoking Status: Current Everyday Smoker Type Used: Cigarettes, Electronic/Vapor 2nd Hand Smoke Exposure: Yes Recent Foreign Travel: No Contact w/Someone Who Travel: No Recent Hopitalizations: No Immunizations Up To Date Tetanus Booster (TDap): Less than 5yrs PED Vaccines UTD: Yes Seasonal Allergies Seasonal Allergies: No Surgeries HX Surgeries: Yes (PILONDIAL CYST?, BILAT CTR, lipoma) Surgeries: Tubal Ligation Respiratory Hx Respiratory Disorders: No Cardiovascular Hx Cardiac Disorders: No Neurological Hx Neurological Disorders: No Reproductive System Female Reproductive Disorders: Denies Genitourinary Hx Genitourinary Disorders: No Gastrointestinal Hx Gastrointestinal Disorders: No Musculoskeletal Hx Musculoskeletal Disorders: Yes (SCIATIC PAIN) Musculoskeletal Disorders: Degenerate Disk Disease, Arthritis, Chronic Back Pain Endocrine Hx Endocrine Disorders: No HEENT HX ENT Disorders: No Cancer Hx Cancer: No Psychosocial Hx Psychiatric Problems: No Integumentary HX Skin/Integumentary Disorder: No (LIPOMA R UPPER BACK) Blood Transfusions Hx Blood Disorders: No Family Medical History Significant Family History: No Pertinent Family Hx Physical Exam Vital Signs Vital Sign - Last 12Hours 08/20/16 18:37 Temp 97.4 Resp 18 B/P (MAP) 169/115 Capillary Refill : General Appearance: WD/WN, Anxious Neck: Full Range of Motion, Normal Inspection, Non Tender, Supple Cardiovascular: No Edema, Normal Peripheral Pulses Respiratory: Chest Non Tender, Lungs Clear Peripheral Pulses: 4+ Dorsalis Pedis (R), 4+ Left Dors-Pedis (L), 4+ Radial Pulses (R), 4+ Radial Pulses (L) Gastrointestinal: Non Tender, Soft Back: Normal Inspection, No Vertebral Tenderness, No Muscle Spasm Extremity: Normal Capillary Refill, Normal Inspection, Normal Range of Motion, No Calf Tenderness, No Pedal Edema Neurologic/Psychiatric: Alert, Oriented x3, Other (patella DTRs intact) Skin: Normal Color, Warm/Dry Progress/Results/Core Measures Results/Orders My Orders Orders - JAYLYN JOHNSON Prednisone Tablet (Deltasone Tablet) (08/20/16 19:15) Vital Signs/I&O Vital Sign - Last 12Hours 08/20/16 18:37 Temp 97.4 Resp 18 B/P (MAP) 169/115 Progress Note : Time: 19:26 Progress Note patient is having an acute sciatica tach and asking for referral. We will treat her with steroids by mouth as she requests and she already has a good regimen of heating NSAIDs and Tylenol. She'll need to follow up with her PCP. Departure Impression Impression: Primary Impression: Sciatica associated with disorder of lumbosacral spine Disposition: 01 HOME, SELF-CARE Condition: Stable Departure-Patient Inst. Decision time for Depature: 19:02 Referrals: FRANK ADAN DO (PCP) Primary Care Physician DANIEL OBANDO (Family) Primary Care Physician Patient Instructions: Radiculopathy (DC) Add. Discharge Instructions: you've been given a dose of steroids today which will start working about 12-24 hours. You should continue taking these 2 tablets twice a day for 3 days and then one tablet twice a day for another 2 days. If you started having falls or incontinence of stool or your bladder then you should return to the ER immediately. if you're feeling wired and unable to sleep or having other concerning symptoms he should reduce the dose of your prednisone and speak to your primary care physician that day. tomorrow morning call your primary care physician and set up an appointment so he can get this pain further managed. Continued to use ibuprofen 2 tablets every 4-6 hours and Tylenol 2 tablets every 6-8 hours as needed. Use heat applied directly to the site. He may also use Biofreeze or icy hot as needed. All discharge instructions reviewed with patient and/or family. Voiced understanding. Scripts Prednisone (Prednisone) 20 Mg Tab 40 MG PO BID for 5 Days, #16 TAB 0 Refills Prov: JAYLYN JOHNSON 08/20/16 Copy Copies To 1: FRANK ADAN DO JAYLYN JOHNSON Aug 20, 2016 19:06
[2016-08-20] MEDS ORDERED: predniSONE 20 MG TAB PO ONE (19:15)
[2016-08-20 19:40] VITALS: BP 158/98
== END 2016-08-20 19:39 | disposition home or self-care (01) ==
LOC: EDUNIT# 17:01 → ER 17:04
DX: M54.30 Sciatica, unspecified side (principal); G95.9 Disease of spinal cord, unspecified; M19.90 Unspecified osteoarthritis, unspecified site; F17.210 Nicotine dependence, cigarettes, uncomplicated; Z98.51 Tubal ligation status
CPT/HCPCS: 99283

== ENCOUNTER → 2017-08-02 | Outpatient (CLI) | payer OTHER ==
[~2017-08-02] MED LIST changes: +CATHETER FLUSH 10 ML SYR IV PRN; +IOHEXOL 350 MG/ML 100 ML (OMNIPAQUE 350) VIAL IV ONE; +NAPR-1070 PO; +NAPR-1073 PO; -NAPR500T2 PO; -NAPR550T PO; +NS 100 ML (IVPB) BAG IV ONE
--- NOTE | 2017-08-02 10:25 | Diagnostic Imaging Report ---
PROCEDURE: CT abdomen with contrast only. TECHNIQUE: Multiple contiguous axial images were obtained through the abdomen after the administration of intravenous contrast. INDICATION: Splenic artery aneurysm. COMPARISON: No prior studies are available for comparison. FINDINGS: The lung bases are clear. No discrete liver mass is identified. Gallbladder is unremarkable. The pancreas and spleen are unremarkable. There is a calcified mass in the splenic hilum approximately 10 mm in size consistent with splenic artery aneurysm. No adrenal mass is identified. The kidneys are unremarkable. Aorta is nonaneurysmal. No central retroperitoneal or mesenteric lymphadenopathy is seen. The small and large bowel loops appear normal caliber. There is no ascites. IMPRESSION: Peripherally calcified mass in the splenic hilum 10 mm in size and consistent with splenic artery aneurysm. Remainder of the study is unremarkable. Dictated by: Dictated on workstation # [id number]
== END ==
LOC: RAD 09:11
PROVIDERS: ATTEND Nurse Practitioner Primary Care
DX: D73.89 Other diseases of spleen (principal); I72.8 Aneurysm of other specified arteries
CPT/HCPCS: 74160

== ENCOUNTER → 2017-08-02 | Outpatient (CLI) | payer OTHER ==
[~2017-08-02] MED LIST changes: -CATHETER FLUSH 10 ML SYR IV PRN; -IOHEXOL 350 MG/ML 100 ML (OMNIPAQUE 350) VIAL IV ONE; -NS 100 ML (IVPB) BAG IV ONE
--- NOTE | 2017-08-03 12:20 | Diagnostic Imaging Report ---
INDICATION: Routine screening. Comparison is made with prior mammogram from 04/24/2013. 2-D and 3-D bilateral screening mammography was performed with CAD. Both breasts are heterogeneously dense, limiting the sensitivity of mammography. No mass or malignant appearing microcalcifications are seen. The axilla are unremarkable. IMPRESSION: BI-RADS category one No mammographic features suspicious for malignancy are identified. ACR BI-RADS Category 1: Negative. Result letter will be mailed to the patient. Note: At least 10% of breast cancer is not imaged by mammography. Dictated by: Dictated on workstation # [id number]
== END ==
LOC: RAD 09:18
PROVIDERS: ATTEND Nurse Practitioner Primary Care
DX: Z12.31 Encounter for screening mammogram for malignant neoplasm of breast (principal)
CPT/HCPCS: 77067

== ENCOUNTER 2018-01-26 13:55 | Outpatient (RCR) | payer OTHER | END 2018-03-01 15:51 | disposition home or self-care (01) | PROVIDERS: ATTEND Nurse Practitioner Primary Care | DX: M54.42 Lumbago with sciatica, left side (principal) ==

== ENCOUNTER → 2018-03-14 | Outpatient (CLI) | payer OTHER ==
--- NOTE | 2018-03-14 10:41 | Diagnostic Imaging Report ---
EXAMINATION: Bilateral hands. INDICATION: Hand pain. AP and lateral views of both hands were obtained. COMPARISON: There are no prior studies available for comparison. FINDINGS: There is no fracture, dislocation or acute bony abnormality evident. There are mild degenerative changes involving the PIP and DIP joints of each digit. There is also mild narrowing of the radiocarpal joints and the triscaphe joints. The soft tissues are unremarkable. IMPRESSION: 1. There is no evidence for an acute bony abnormality. 2. There is only mild degenerative disease of the hands. Dictated by: Dictated on workstation # [id number]
== END ==
LOC: RAD 09:17
PROVIDERS: ATTEND Family Medicine
DX: Z02.71 Encounter for disability determination (principal); M19.042 Primary osteoarthritis, left hand; M19.041 Primary osteoarthritis, right hand

== ENCOUNTER 2018-05-27 16:41 | Emergency (ER) | payer MEDICAID, OTHER ==
[~2018-05-27] VITALS: Ht 157.5 cm; Wt 72.6 kg
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
--- OUTSIDE RECORDS SUMMARY | 2018-05-27 16:51 | XMS REPORT ---
Author Author DANIEL OBANDO [facility] Address [address] [place] [address] Care Team Providers Care Stull Installer Name Role Phone DANIEL OBANDO Unavailable PROBLEMS Type Condition ICD9-CM Code [id number] Code Onset Dates Condition Status SNOMED Code Problem Severe episode of recurrent major depressive disorder, without psychotic features F33.2 Active 12119730 Problem Acute left-sided low back pain with left-sided sciatica M54.42 Active 490716711 Problem History of alcohol abuse Z87.898 Active 014834487 Problem PTSD (post-traumatic stress disorder) F43.10 Active 58207063 Problem Anxiety F41.9 Active 70491654 Problem Lumbago with sciatica, right side M54.41 Active 528852731 Problem Other chronic pain G89.29 Active 98297001 ALLERGIES No Known Allergies SOCIAL HISTORY Never Assessed PLAN OF CARE Activity Details Follow Up 2 Months Reason:back pain VITAL SIGNS Height 62 in 2016-05-06 Weight 145.6 lbs 2016-05-06 Temperature 97.6 degrees Fahrenheit 2016-05-06 Heart Rate 84 bpm 2016-05-06 Respiratory Rate 20 2016-05-06 BMI 26.63 kg/m2 2016-05-06 Blood pressure systolic 128 mmHg 2016-05-06 Blood pressure diastolic 96 mmHg 2016-05-06 MEDICATIONS Medication Instructions Dosage Frequency Start Date End Date Duration Status Mobic 7.5 MG Orally twice a day 1 tablet 12h Apr, Aug, 30 day(s) Active Aleve 220 MG Orally every 12 hrs 1 tablet as needed 12h Active Paxil 40 mg Orally Once a day 1 tablet in the morning 24h Active Prevacid 15 MG Orally Once a day 1 capsule 24h Active RESULTS No Results PROCEDURES No Known procedures IMMUNIZATIONS No Known Immunizations MEDICAL (GENERAL) HISTORY Type Description Date Medical History arthritis Medical History acid reflux Medical History depression Medical History Degenerative disc disease Surgical History Fatty tumor revoved 1981 Surgical History carple tunnel both hands Surgical History tubaligation 1999 Surgical History colonoscopy 02/2015 Surgical History EGD 02/2015
[2018-05-27] MEDS ORDERED: RT-ALBUTEROL/IPRATROPIUM 3 ML (DUONEB) VIAL INH ONE (17:15)
--- NOTE | 2018-05-27 17:17 | Diagnostic Imaging Report ---
INDICATION: Cough COMPARISON: None. FINDINGS: Frontal and lateral views the chest demonstrate clear lungs bilaterally. The heart size is normal. There is no pneumothorax. Osseous structures are normal. IMPRESSION: No acute findings. Normal chest. Dictated by: Dictated on workstation # [id number]
[2018-05-27] MEDS ORDERED: PRD20T PO (17:51)
[2018-05-27] MEDS ORDERED: RT-ALBUINH IH (17:51)
[2018-05-27] MEDS ORDERED: AZIT250T PO (17:51)
--- NOTE | 2018-05-27 17:51 | ED Cough/URI ---
General Chief Complaint: Cough/Cold/Flu Symptoms Stated Complaint: COUGH Nursing Triage Note: PATIENT AMBULATORY TO ER WITH COMPLAINT OF COUGH X 1 MONTH.PATIENT STATES PRODUCTIVE COUGH WITH YELLOW GREEN SPUTUM. PATIENT STATES UPPER NACK PAIN WITH COUGHING AND SORE THROAT WHEN COUGHING. Sepsis Screen: No Definite Risk Source: patient Exam Limitations: no limitations History of Present Illness Date Seen by Provider: May 27, 2018 Time Seen by Provider: 17:00 Initial Comments 58-year-old female who presents to the emergency room with cough for one month. She reports that she's been having productive cough with yellow-green sputum for the past week. She denies shortness of breath. Timing/Duration: other Associated Symptoms: cough Allergies and Home Medications Allergies Coded Allergies: No Known Drug Allergies (Unverified , 02/06/16) Home Medications Albuterol Sulfate 1 Puff Puff, 2 PUFF IH Q4H 1 PUFF = 90 MCG Prescribed by: SERGO STATON on 05/27/18 175 Azithromycin 250 Mg Tablet, 250 MG PO UD TAKE 2 TABLETS TODAY, THEN TAKE 1 TABLET DAILY FOR 4 MORE DAYS Prescribed by: SERGO STATON on 05/27/18 175 Cyclobenzaprine HCl 5 Mg Tablet, 5 MG PO TID Prescribed by: ALEXIS BERNSTEIN on 05/10/16 1400 Paroxetine HCl 30 Mg Tablet, 30 MG PO DAILY, (Reported) Prednisone 20 Mg Tab, 40 MG PO BID Prescribed by: JAYLYN JOHNSON on 08/20/16 1906 Prednisone 20 Mg Tab, 40 MG PO DAILY Prescribed by: SERGO STATON on 05/27/18 175 Patient Home Medication List Home Medication List Reviewed: Yes Review of Systems Review of Systems Constitutional: see HPI; No chills, No fever Respiratory: see HPI, cough, phlegm All Other Systems Reviewed Negative Unless Noted: Yes Past Zfafxxn-Twvkya-Sfxkka Hx Past Med/Social Hx: Reviewed Nursing Past Med/Soc Hx Patient Social History Alcohol Use: Denies Use Recreational Drug Use: No Smoking Status: Current Everyday Smoker Type Used: Cigarettes 2nd Hand Smoke Exposure: Yes Recent Foreign Travel: No Contact w/Someone Who Travel: No Recent Infectious Disease Expo: No Recent Hopitalizations: No Immunizations Up To Date Tetanus Booster (TDap): Less than 5yrs PED Vaccines UTD: Yes Seasonal Allergies Seasonal Allergies: No Past Medical History Surgeries: Yes (PILONDIAL CYST?, BILAT CTR, lipoma) Tubal Ligation Respiratory: No Cardiac: No Neurological: No Female Reproductive Disorders: Denies Genitourinary: No Gastrointestinal: No Musculoskeletal: Yes (SCIATIC PAIN) Degenerate Disk Disease, Arthritis, Chronic Back Pain Endocrine: No HEENT: No Cancer: No Psychosocial: No Integumentary: No (LIPOMA R UPPER BACK) Blood Disorders: No Family Medical History Reviewed Nursing Family Hx No Pertinent Family Hx Physical Exam Vital Signs - First Documented 05/27/18 05/27/18 16:46 18:03 Temp 98.5 Pulse 87 Resp 16 B/P (MAP) 112/79 (90) Pulse Ox 96 O2 Delivery Room Air Capillary Refill : Less Than 3 Seconds Height: 5'2.00" Weight: 160lbs. 7.0oz. 72.318549ix; 26.2 BMI Method:Stated General Appearance: WD/WN, no apparent distress Respiratory: chest non-tender, no respiratory distress, no accessory muscle use , wheezing (faint wheezes throughout lung rodriguez) Cardiovascular: normal peripheral pulses, regular rate, rhythm, no edema, no gallop, no JVD, no murmur Gastrointestinal: normal bowel sounds, non tender, soft, no organomegaly, no pulsatile mass Neurologic/Psychiatric: alert, normal mood/affect, oriented x 3 Skin: normal color, warm/dry Progress/Results/Core Measures Suspected Sepsis Recent Fever Within 48 Hours: No Infection Criteria Present: None New/Unexplained Altered Menta: No Sepsis Screen: No Definite Risk SIRS Temperature:98.5 Pulse: 87 Respiratory Rate: 16 Blood Pressure 112 /79 Mean: 90 Results/Orders My Orders Orders - BERNOT,SERGO Albuterol/Ipra Inhalation Soln (Duoneb I (05/27/18 17:15) Chest Pa/Lat (2 View) (05/27/18 17:01) Medications Given in ED Vital Signs/I&O 05/27/18 05/27/18 16:46 18:03 Temp 98.5 98.5 Pulse 87 87 Resp 16 16 B/P (MAP) 112/79 (90) 112/79 (90) Pulse Ox 96 O2 Delivery Room Air Room Air Capillary Refill : Less Than 3 Seconds Blood Pressure Mean: 90 Diagnostic Imaging Diagonstic Imaging: Xray Plain Films/CT/US/NM/MRI: chest Comments NAME: REGLA JIMENEZ [facility] REC#: [id number] PT STATUS: REG ER : 1960 PHYSICIAN: SERGO STATON ADMIT DATE: 05/27/18/ER Signed Date of Exam: 05/27/18 CHEST PA/LAT (2 VIEW) INDICATION: Cough COMPARISON: None. FINDINGS: Frontal and lateral views the chest demonstrate clear lungs bilaterally. The heart size is normal. There is no pneumothorax. Osseous structures are normal. IMPRESSION: No acute findings. Normal chest. Dictated by: Dictated on workstation # [id number] Dict: 05/27/181713 Trans: 05/27/181713 Interpreted by: FREDY NOONAN Electronically signed by: FREDY NOONAN 05/27/181713 Reviewed: Reviewed by Me Departure Impression Primary Impression: Bronchitis Disposition: 01 HOME, SELF-CARE Condition: Stable/Unchanged Departure-Patient Inst. Decision time for Depature: 17:48 Referrals: CARLIE MONTIEL APRN (PCP) Primary Care Physician [facility] (Family) Primary Care Physician Patient Instructions: Bronchiolitis (DC) Add. Discharge Instructions: Take medications as directed. Follow-up with your primary care provider within 1 week for recheck. Return back to the emergency room for worsening symptoms or concerns as needed. All discharge instructions reviewed with patient and/or family. Voiced understanding. Scripts Azithromycin (Zithromax) 250 Mg Tablet 250 MG PO UD, #6 TAB TAKE 2 TABLETS TODAY, THEN TAKE 1 TABLET DAILY FOR 4 MORE DAYS Prov: SERGO STATON 05/27/18 Albuterol Sulfate (VENTOLIN HFA) 1 Puff Puff 2 PUFF IH Q4H, #1 INHALER 1 PUFF = 90 MCG Prov: SERGO STATON 05/27/18 Prednisone (Prednisone) 20 Mg Tab 40 MG PO DAILY for 5 Days, #10 TAB Prov: SERGO STATON 05/27/18 SERGO STATON May 27, 2018 17:51
[2018-05-27 18:03] VITALS: BP 112/79
--- NOTE | 2018-05-27 18:04 | NUR ---
PATIENT STATES SHE FEELS MUCH BETTER SINCE THE DUONEB TREATMENT. SHE DENIES ANY SHORTNESS OF BREATH AT TIME OF DISCHARGE.
== END 2018-05-27 18:04 | disposition home or self-care (01) ==
LOC: EDUNIT# 16:41 → ER 16:43
DX: J40 Bronchitis, not specified as acute or chronic (principal); F17.210 Nicotine dependence, cigarettes, uncomplicated; Z79.52 Long term (current) use of systemic steroids; Z98.51 Tubal ligation status; Z86.018 Personal history of other benign neoplasm
CPT/HCPCS: 71046